=== PATIENT | male | born 1995 | race Caucasian/White ===

== ENCOUNTER 2016-05-16 20:38 | Emergency (ER) | payer SELFPAY ==
[2016-05-16] MEDS ORDERED: diphenhydrAMINE HCl 25 MG CAP ONE (21:10)
[2016-05-16] MEDS ORDERED: predniSONE 20 MG TAB ONE (21:10)
== END 2016-05-16 21:30 | disposition home or self-care (01) ==
LOC: MADERS 20:38
DX: R21 Rash and other nonspecific skin eruption (principal); R23.8 Other skin changes; Z87.891 Personal history of nicotine dependence
CPT/HCPCS: 99282; J7506